=== PATIENT | male | born 1975 | race Caucasian/White ===

== ENCOUNTER 2019-12-18 12:16 | Observation (INO) | payer OTHER, SELFPAY ==
--- NOTE | 2019-12-18 12:30 | CT ---
CT BRAIN NONCONTRAST: DATE: 12/18/2019 HISTORY: 43-year-old male with acute stroke: Left upper extremity hypesthesia (numbness) and dysarthria Dr. Gasca gave verbal report by telephone for this level [address] Montano at 12:2 7 PM 12/18/2019 FINDINGS: There is no evidence of acute intra-axial or extra-axial hemorrhage. There is no midline shift or any other mass effect. There is no extra-axial fluid collection. There is no evidence of obstructive hydrocephalus. Calvarium is intact. IMPRESSION: No acute intracranial findings.
[2019-12-18 12:41] LABS: #Eosinphils 0.1 thou/uL (0.0-0.7); #Lymphocytes 2.5 thou/uL (1.20-3.40); #Monocytes 0.4 thou/uL (0.11-0.59); #Neutrophils 5.4 thou/uL (1.40-6.50); %Basophils 0.5 % (0.0-1.0); %Eosinophils 1.4 % (0.0-10.0); %Lymphocytes 29.4 % (21.0-51.0); %Monocytes 4.7 % (0.0-10.0); Mean Corpuscular HGB CONC 34.7 g/dL (32.0-36.0); Mean Corpuscular Hemoglobin 33.6 pg (27.0-31.0); Mean Corpuscular Volume 96.9 fL (78.0-98.0); Mean Platelet Volume 9.1 fL (7.4-10.4); Platelet Count 212 thou/uL (130-400); RBC Distribution Width 11.3 % (11.5-14.5); Red Blood Cell (RBC) Count 4.76 mill/uL (4.70-6.10); White Blood Cell (WBC) Count 8.5 thou/uL (4.8-10.8)
[2019-12-18 12:48] LABS: PTT 28.6 sec (22.9-36.1)
[2019-12-18 12:49] LABS: Prothrombin Time 13.4 sec (12.0-14.7)
--- NOTE | 2019-12-18 12:58 | CT ---
CT ANGIOGRAM NECK WITH CONTRAST CT ANGIOGRAM BRAIN WITH CONTRAST: DATE: 12/18/2019 HISTORY: 43-year-old male with acute stroke: Left upper extremity hypesthesia and dysarthria. Dr. Gasca gave this level 1 stroke alert protocol report to Dr. Montano at 12:55 PM 12/18/2019 TECHNIQUE: After IV contrast injection, arterial bolus chasing technique scan performed from AP window to vertex of head. Coronal and sagittal 3-D MIP reconstructions. FINDINGS: 0.6 cm nodule abutting posterior edge of right lobe of thyroid gland. 1 cm similar such nodule abutting posterior surface of left lobe of thyroid gland. Inferior sagittal sinus not opacified, probably aplastic Very thin left transverse sinus, probably hypoplastic. The rest of the dural venous sinuses are patent and clear. Aortic arch: No aneurysm or dissection. Brachiocephalic: Origin obscured by streak artifact from adjacent dense IV contrast material in left brachiocephalic vein. Rest of the vessel has normal caliber. Right subclavian artery: Unremarkable Right common carotid artery: Origin obscured by streak artifact from adjacent dense contrast material in right brachiocephalic vein. The rest of the right common carotid artery is normal. Left subclavian artery: Proximal portion unremarkable. The rest of vessel is obscured by streak artif act from contrast material in left subclavian vein. Right vertebral artery, cervical segment: Origin obscured. Diminutive. Terminates in PICA . Left vertebral artery: Proximal portion obscured by streak artifact. Dominant. Mid cervical and intra cranial segments unremarkable. Right internal carotid: Unremarkable Left internal carotid: Unremarkable. Carotid siphons: No significant calcified plaque or high-grade stenosis. Bilateral MCAs: M1 segments are normal. Bilateral ACAs: A1 and A2 segments are unremarkable. Patent anterior communicating artery. Basilar artery: Unremarkable Bilateral crystalizer tender: P1 and P2 segments unremarkable. Patent left posterior communicating artery. Superior cerebellar arteries: Proximal portions visualized. IMPRESSION: 1) no M1 segment thrombus. 2) no definite pathology identified.
[2019-12-18 13:15] LABS: ALT (SGPT) 28 U/L (8-55); AST (SGOT) 16 U/L (5-34); Albumin 4.6 g/dL (3.5-5.0); Alkaline Phosphatase 57 U/L (40-110); Anion Gap 11 mmol/L (10-20); BUN (Urea Nitrogen) 16 mg/dL (8.9-20.6); Bilirubin, Total 1.8 mg/dL (0.2-1.2); CK (CPK) 97 U/L (30-200); Calc. Creatinine Clearance 0 mL/min (70-130); Calcium 9.6 mg/dL (7.8-10.44); Carbon Dioxide 28 mmol/L (22-29); Chloride 104 mmol/L (98-107); Estimated GFR-MDRD 68; Globulin 2.9 g/dL (2.4-3.5); Glucose 103 mg/dL (70-105); Potassium 3.9 mmol/L (3.5-5.1); Protein, Total 7.5 g/dL (6.0-8.3); Sodium 139 mmol/L (136-145)
[2019-12-18 13:37] LABS: Bilirubin Negative (Negative); Blood, Urine Negative (Negative); Clarity Clear (Clear); Glucose, Urine (Dipstick) Normal (Negative); Leukocyte Negative Leu/uL (Negative); Nitrite Negative (Negative); Protein, Urine (Dipstick) Negative (Neg-Trace); Urobilinogen Normal mg/dL (Less than 2)
[2019-12-18] MEDS ORDERED: Iopamidol-370 76% 500 ML 1 ML ONE (15:41)
[2019-12-18] MEDS ORDERED: Acetaminophen 325 MG TAB PO PRN (16:01)
[2019-12-18] MEDS ORDERED: Ondansetron ODT 4 MG TAB SL PRN (16:01)
[2019-12-18] MEDS ORDERED: Ondansetron PF 4 MG/2 ML Vial IVP PRN (16:01)
[2019-12-18 16:38] VITALS: BMI 31.5
--- NOTE | 2019-12-18 16:55 | PDOC.HHP ---
Hospitalist HPI - History of Present Illness left side numbness History of Present Illness: This is a 43 year old male with no past medical history who presented to the ER with numbness on the left side. The patient was eating lunch at [employer] when he felt a sudden shock like sensation to his left arm that started at 11:20 this morning. When he stood up he felt dizzy and states that his whole left side was "tingly." He reported his left side of his face was numb and he wasn't able to speak properly. He waited five minutes at the restaurant to see if it would go away but when it didn't, he drove himself to [employer] to have a friend take him to the hospital. While walking he noticed that his left leg was dragging and his left hand was numb. He had difficulty feeling for the joseph in his pocket. He also reported lightheadedness while standing and a mild headache. The patient states symptoms have significantly improved within the past few hours but he still has numbness on the left face, left hand, but the leg has improved. He dips snuff daily. He denies chest pain, shortness of breath or palpitations. ED Course: The patient had normal vitals upon presentation to the ER. CT head showed no acute findings. CTA showed no significant thrombus. Hospitalist ROS - Review of Systems Constitutional: denies: fever, chills Eyes: denies: pain, vision change Respiratory: denies: cough, dry, shortness of breath Cardiovascular: reports: palpitations, light headedness (when standing). denies : chest pain Gastrointestinal: denies: nausea, vomiting, abdominal pain, diarrhea Musculoskeletal: denies: shoulder pain Neurological: reports: weakness, numbness Hospitalist History - Past Surgical History Other Surgical History: None - Family History Other Family History: Father had a stroke - Social History Smoking Status: Current every day smoker (smokes snuffs for past 15 years) Alcohol: reports: Heavy (Drinks 4 beers daily on a good day) - Exam General Appearance: NAD, awake alert Eye: PERRL, anicteric sclera ENT: normocephalic atraumatic, no oropharyngeal lesions Neck: no JVD Heart: RRR, no murmur, no gallops, no rubs Respiratory: CTAB, no wheezes, no rales, no ronchi Gastrointestinal: soft, non-tender, non-distended, normal bowel sounds Extremities: no cyanosis, no clubbing, no edema Skin: normal turgor, no lesions, no rashes Neurological: cranial nerve grossly intact, normal sensation to touch, no focal deficits, no new deficit Neurological - other findings: Babinski mute. Sub dec sens left side Musculoskeletal - other findings: LUE 4/5, LLE 5/5, RUE 5/5, RLE 5/5. Psychiatric: normal affect, normal behavior, A&O x 3 Hospitalist Results - Labs Result Diagrams: 12/18/19 12:27 12/18/19 12:27 Lab results: WBC 8.5 thou/uL (4.8-10.8) 12/18/19 12:27 Hgb 16.0 g/dL (14.0-18.0) 12/18/19 12:27 Hct 46.1 % (42.0-52.0) 12/18/19 12:27 MCV 96.9 fL (78.0-98.0) 12/18/19 12:27 Plt Count 212 thou/uL (130-400) 12/18/19 12:27 Neutrophils % 64.0 % (42.0-75.0) 12/18/19 12:27 Sodium 139 mmol/L (136-145) 12/18/19 12:27 Potassium 3.9 mmol/L (3.5-5.1) 12/18/19 12:27 Chloride 104 mmol/L (98-107) 12/18/19 12:27 Carbon Dioxide 28 mmol/L (22-29) 12/18/19 12:27 BUN 16 mg/dL (8.9-20.6) 12/18/19 12:27 Creatinine 1.16 mg/dL (0.7-1.3) 12/18/19 12:27 Glucose 103 mg/dL (70-105) 12/18/19 12:27 Calcium 9.6 mg/dL (7.8-10.44) 12/18/19 12:27 Total Bilirubin 1.8 mg/dL (0.2-1.2) H 12/18/19 12:27 AST 16 U/L (5-34) 12/18/19 12:27 ALT 28 U/L (8-55) 12/18/19 12:27 Alkaline Phosphatase 57 U/L (40-110) 12/18/19 12:27 Creatine Kinase 97 U/L (30-200) 12/18/19 12:27 Troponin I 0.011 ng/mL (< 0.028) 12/18/19 12:27 Serum Total Protein 7.5 g/dL (6.0-8.3) 12/18/19 12:27 Albumin 4.6 g/dL (3.5-5.0) 12/18/19 12:27 Urine Ketones Negative mg/dL (Negative) 12/18/19 13:15 Urine Blood Negative (Negative) 12/18/19 13:15 Urine Nitrite Negative (Negative) 12/18/19 13:15 Ur Leukocyte Esterase Negative Zoran/uL (Negative) 12/18/19 13:15 Hospitalist H&P A/P - Plan Plan: This is a 43 year old male who presented to the ER with left sided numbness, concerning for stroke LEft side numbness - TIA versus stroke - CT head and CTA negative, will give aspirin 325 mg now, then 81 mg daily - check MRI brain - start atorvastatin - trend troponin - monitor on telemetry - PT/OT/speech Dizziness - check orthostatics - check chest X ray - trend troponin DVT prophylaxis: lovenox Code status:full code
[2019-12-18] MEDS ORDERED: Aspirin 325 mg Enteric Coated Tablet PO SCH (17:00)
[2019-12-18] MEDS ORDERED: Enoxaparin Sodium 40 MG/0.4 ML SYRINGE SC SCH (17:00)
--- NOTE | 2019-12-18 18:17 | RAD ---
PORTABLE CHEST ONE VIEW: 12/18/19 at 4:50 p.m. HISTORY: Left arm numbness, lightheadedness. FINDINGS: The heart size is normal. The lungs are expanded without focal areas of consolidation, pneumothoraces or pleural effusions. IMPRESSION: No radiographic evidence of acute cardiopulmonary process. POS: OFF
[2019-12-18] MEDS ORDERED: Atorvastatin Calcium 40 MG TAB PO SCH (21:00)
[2019-12-19 05:23] LABS: Hemoglobin A1c 5.1 % (4.0-6.0)
[2019-12-19 05:34] LABS: ALT (SGPT) 23 U/L (8-55); AST (SGOT) 15 U/L (5-34); Alkaline Phosphatase 59 U/L (40-110); Bilirubin, Direct 0.3 mg/dL (0.1-0.3); Bilirubin, Total 0.9 mg/dL (0.2-1.2); Cardiac Risk 5.3 (Less than 4.5); Protein, Total 6.6 g/dL (6.0-8.3)
--- NOTE | 2019-12-19 08:16 | MRI ---
MRI BRAIN NONCONTRAST: DATE: 12/19/2019 HISTORY: 43-year-old male with acute stroke: Dysarthria and Left upper extremity hypesthesia (numbness) COMPARISON: None FINDINGS: There is a thin, subtle linear array (along oblique transverse orientation) of tiny foci of mildly re stricted diffusion in the right posterior centrum semiovale, involvement of at least one very small region of right posterior suprasylvian lateral frontal cortical ortez matter. There is very subtle, mi nimal associated hyperintensity on T2 WI and FLAIR, which would be difficult to recognize without the DWI and ADC map. No associated hemorrhage. No evidence of recent or remote intra-axial hemorrhage . Ventricles are normal in size and configuration. No significant chronic ischemic white matter changes. Flow voids are grossly maintained in the major arteries of elem of [place]. IMPRESSION: A very subtle, thin, linear array of a few acute tiny infarctions in right middle cerebral artery bra nch territory.
[2019-12-19] MEDS ORDERED: Enoxaparin Sodium 40 MG/0.4 ML SYRINGE SC SCH (09:00)
[2019-12-19] MEDS ORDERED: Aspirin 325 mg Enteric Coated Tablet PO SCH (09:00)
[2019-12-19] MEDS ORDERED: Aspirin 81 mg Enteric Coated Tablet PO SCH (09:00)
--- NOTE | 2019-12-19 12:14 | CON ---
NEUROLOGY CONSULTATION DATE OF CONSULTATION: 12/19/2019 REASON FOR CONSULTATION: Left paresthesias on the left side of the body. HISTORY OF PRESENT ILLNESS: Mr. Holley is a 43-year-old male with no significant past medical history, presented to the emergency room with tingling and numbness on the left side of the body. According to the patient, he was eating lunch at restaurant and he felt a sudden shock-like sensation in his left arm that started around 1120 hours on 12/18/2019 and then his left side of the face went numb and he was unable to speak properly. He waited for about 5 to 6 minutes at the restaurant to see if the symptoms resolved, but symptoms did not resolve. He drove himself to the [employer] to have a friend take him to the hospital. At that time, he also noted that he was dragging his left leg and his left hand was also numb. The patient also reported a mild headache and lightheadedness, and he denies any nausea, vomiting , vertigo, chest pain, abdominal pain, loss of vision, or loss of consciousness associated with the episode. In the emergency room, head CT was done, which did not reveal any acute intracranial pathology. CT angiogram of the head and neck did not reveal any significant thrombosis or hemodynamically significant stenosis. PAST MEDICAL HISTORY: None. PAST SURGICAL HISTORY: None. FAMILY HISTORY: Father had stroke. SOCIAL HISTORY: He is a current smoker. He drinks alcohol 4 beers a day. - Review of Systems Constitutional: denies: fever, chills Eyes: denies: pain, vision change Respiratory: denies: cough, dry, shortness of breath Cardiovascular: reports: palpitations, light headedness (when standing). denies : chest pain Gastrointestinal: denies: nausea, vomiting, abdominal pain, diarrhea Musculoskeletal: denies: shoulder pain Neurological: reports: weakness, numbness - Exam General Appearance: NAD, awake alert Eye: PERRL, anicteric sclera ENT: normocephalic atraumatic, no oropharyngeal lesions Neck: no JVD Heart: RRR, no murmur, no gallops, no rubs Respiratory: CTAB, no wheezes, no rales, no ronchi Gastrointestinal: soft, non-tender, non-distended, normal bowel sounds Extremities: no cyanosis, no clubbing, no edema Skin: normal turgor, no lesions, no rashes Neurological: Mental status; the patient is alert and oriented to person, place , and time. Recent and remote memory intact. Fund of knowledge appropriate. Speech is clear. Cranial nerves 2 through 12 intact. Motor; muscle tone and bulk are normal. Strength 4/5 in the left upper extremity, left lower extremity 5/5, and right upper extremity and right lower extremity 5/5. Sensory, decreased sensation to pinprick and light touch in the left upper extremity. Reflexes symmetric bilaterally. Cerebellar intact. Gait deferred due to the patient's safety reasons. 12/18/19 12:27 Lab results: WBC 8.5 thou/uL (4.8-10.8) 12/18/19 12:27 Hgb 16.0 g/dL (14.0-18.0) 12/18/19 12:27 Hct 46.1 % (42.0-52.0) 12/18/19 12:27 MCV 96.9 fL (78.0-98.0) 12/18/19 12:27 Plt Count 212 thou/uL (130-400) 12/18/19 12:27 Neutrophils % 64.0 % (42.0-75.0) 12/18/19 12:27 Sodium 139 mmol/L (136-145) 12/18/19 12:27 Potassium 3.9 mmol/L (3.5-5.1) 12/18/19 12:27 Chloride 104 mmol/L (98-107) 12/18/19 12:27 Carbon Dioxide 28 mmol/L (22-29) 12/18/19 12:27 BUN 16 mg/dL (8.9-20.6) 12/18/19 12:27 Creatinine 1.16 mg/dL (0.7-1.3) 12/18/19 12:27 Glucose 103 mg/dL (70-105) 12/18/19 12:27 Calcium 9.6 mg/dL (7.8-10.44) 12/18/19 12:27 Total Bilirubin 1.8 mg/dL (0.2-1.2) H 12/18/19 12:27 AST 16 U/L (5-34) 12/18/19 12:27 ALT 28 U/L (8-55) 12/18/19 12:27 Alkaline Phosphatase 57 U/L (40-110) 12/18/19 12:27 Creatine Kinase 97 U/L (30-200) 12/18/19 12:27 Troponin I 0.011 ng/mL (< 0.028) 12/18/19 12:27 Serum Total Protein 7.5 g/dL (6.0-8.3) 12/18/19 12:27 Albumin 4.6 g/dL (3.5-5.0) 12/18/19 12:27 Urine Ketones Negative mg/dL (Negative) 12/18/19 13:15 Urine Blood Negative (Negative) 12/18/19 13:15 Urine Nitrite Negative (Negative) 12/18/19 13:15 Ur Leukocyte Esterase Negative Zoran/uL (Negative) 12/18/19 13:15 DATA REVIEWED: I reviewed the labs, which were essentially unremarkable. ASSESSMENT AND PLAN: Mr. Holley is a 43-year-old male, who presented to the emergency room with left-sided numbness. MRI of the brain reviewed, which showed tiny acute infarctions in the right middle cerebral artery territory. Recommend echocardiogram to rule out cardioembolic source. CT angiogram of the head and neck reviewed, which was negative for hemodynamically significant stenosis. Continue aspirin and atorvastatin for secondary stroke prevention. Continue home medications. Neuro checks every 4 hours, telemetry, check lipid panel, hemoglobin A1c, and TSH. PT/OT/speech. DVT prophylaxis. We will continue to follow. Thank you for the consult. Job ID: [id number] MTDD
[2019-12-19 15:18] VITALS: BP 122/59; TEMP 97.9
--- NOTE | 2019-12-20 00:36 | CON ---
DATE OF CONSULTATION: 12/19/2019 REASON FOR CONSULTATION: Aortic insufficiency, recent transient ischemic attack. HISTORY OF PRESENT ILLNESS: Mr. Holley is a 43-year-old gentleman who came to the hospital yesterday after having experiencing left arm tingling and then weakness. He initially noted that his left leg was also dragging and his left hand was numb, later the symptoms resolved. He had an extensive evaluation here including CT of the head, which showed no acute findings. CT angiogram showed no significant obstruction in the carotid arteries or the intracerebral arteries. MRI revealed that he had "very subtle" abnormality of tiny infarctions in the right middle cerebral artery branch territory. As a part of his evaluation, he underwent an echocardiogram, this will be outlined below. The patient has no chest pain. He has an occasional palpitation and a feeling of his heart racing, but he does not really remember how often that happened. He said has not paid a lot of attention to it. He has no anginal symptoms. He has some intermittent fatigue, but no exertional chest pain or pressure. No anginal symptoms. MEDICATIONS: Prior to admission, he was taking none. SOCIAL HISTORY: He uses tobacco daily. Alcohol, drinks four beers "on a good day." FAMILY HISTORY: Father had a stroke. PHYSICAL EXAMINATION: GENERAL: This is a young man, alert and oriented, in no distress. VITAL SIGNS: Blood pressure earlier 110/60, then 122/60; pulse 72, regular. HEENT: Eyes; sclerae nonicteric. Mouth, mucous membranes moist. NECK: Supple. No lymphadenopathy. LUNGS: Clear. CARDIAC: There is a 2/6 decrescendo murmur heard along the left mid sternal border. There is 1 to 2/6 systolic murmur in the right upper sternal border. ABDOMEN: Soft, nontender. EXTREMITIES: Warm and dry. No clubbing or cyanosis. There is no edema. Good peripheral pulses. PERTINENT LABORATORY DATA: Cholesterol is 243, LDL 163. Echocardiogram reveals he has mildly dilated left ventricle, moderate to severe aortic insufficiency. The aortic valve leaflets are mildly calcified. EKG is normal sinus rhythm. Troponin levels were negative. TSH 3.0534. ASSESSMENT: 1. Transient ischemic attack as outlined above. 2. Mildly dilated left ventricle. 3. Moderate to severe aortic insufficiency, likely chronic. PLAN: 1. At this time, it is unclear what caused the transient ischemic attack. Certainly, could have had some embolic debris from the aortic valve, which has calcium. There is no evidence of any intracranial vascular disease or carotid disease. He also has occasional palpitation; therefore, it would be reasonable to try to at least screen him for atrial fibrillation, although none has been diagnosed so far. For now, he will go home on;. a. Aspirin. b. Atorvastatin 40 mg a day. 2. We will ask him to come back to the office to have a 7-day monitor to screen for any atrial arrhythmias. 3. In view of the mildly dilated left ventricle, we would like to do stress testing at some point, Cardiolite treadmill testing. 4. Tobacco and alcohol cessation would be ideal. We will advise this to this gentleman. Job ID: [id number]
--- NOTE | 2019-12-20 01:39 | DIS ---
DATE OF ADMISSION: 12/18/2019 DATE OF DISCHARGE: 12/19/2019 DISCHARGE DIAGNOSES: 1. Right MCA stroke. 2. Hypercholesterolemia. 3. Aortic regurgitation. 4. Three leaflet aortic valve. CONSULTATIONS: 1. Cardiology with Dr. Atul Johns 2. Neurology with Dr. Trudy Johnson. BRIEF HISTORY OF PRESENT ILLNESS: This is a 43-year-old male, who presented to the emergency room after experiencing a left-sided arm and face numbness after eating in a restaurant and standing up to pay his bill. His left leg was also weak as well. His symptoms mostly resolved by the time he came in the emergency room. The patient had a CT scan of his head, which showed no acute findings. CTA showed no thrombus. The patient was admitted for further workup. HOSPITAL COURSE: Acute right MCA stroke: The patient underwent an MRI of his brain, which showed subtle thin array of few acute tiny infarctions in the right MCA territory. He was given aspirin 325 mg and then was switched to aspirin 81 mg. He was also started on atorvastatin. His troponins were trended, which were normal. EKG showed no abnormalities. He had no arrhythmias on telemetry. ECHO showed [id number] aortic regurg in three leaflet aortic valve. He was seen by Cardiology, who cleared him for discharge and recommended followup as an outpatient. The patient reported resolution of numbness in his face, leg and arm but has residual numbness in his left hand. The patient to follow up with his PCP in a week. Dizziness: The patient had orthostatics checked, which were negative. Chest x- ray was done, which was unremarkable. He was seen by Physical Therapy and Occupational Therapy and cleared for discharge. DISCHARGE PHYSICAL EXAMINATION: VITAL SIGNS: Temperature 98, heart rate 69, respiratory rate 20, O2 saturation 97% on room air, and blood pressure 113/61. GENERAL: The patient is alert, awake, and oriented x3. CVS: Regular rate and rhythm with no murmurs, rubs, or gallops. LUNGS: Clear to auscultation bilaterally. ABDOMEN: Positive bowel sounds. Soft, nontender, and nondistended. EXTREMITIES: No edema. NEUROLOGIC: The patient's cranial nerves 2 through 12 are intact. The patient still has subjective numbness on his left hand. Otherwise, he has intact sensation in all 4 extremities. 5/5 strength in all 4 extremities. PERTINENT LABORATORY DATA: CBC 12/17: Normal. BMP 12/17: Normal. Troponin I: Negative x3. Total bilirubin 12/17: Slightly elevated at 1.8, however, repeat LFTs 12/18 showed normal bilirubin. Lipid panel: Triglyceride 170, cholesterol 243, LDL 163, HDL of 46, TSH 3.05. UA: Negative. CT scan of the brain 12/17: No acute findings. CT angio 12/17: Shows no M1 segment thrombus. Chest x-ray: Shows no acute disease. PERTINENT IMAGING: CTA head and neck shows no M1 segment thrombus: No definite pathology. Brain MRI 12/18: Shows subtle hyperintensity on T2WI and FLAIR. There is mildly restricted diffusion in the right posterior centrum semiovale and at least one very small region of right posterior suprasylvian lateral frontal cortical ortez matter. There is a tiny infarction in the right MCA artery territory. Echo 12/18: Shows moderate to severe AR. EF 50% to 55%. Aortic valve leaflets mildly calcified with three leaflets. DISCHARGE CONDITION: Stable. ACTIVITY: As tolerated. DIET: Heart healthy diet. DISCHARGE MEDICATIONS: 1. Aspirin 81 mg p.o. daily. 2. Atorvastatin 40 mg p.o. at bedtime. DISCHARGE INSTRUCTIONS: The patient is to follow up with his PCP in a week. He is to follow up with Dr. Atul Johns in 1 to 2 weeks from Cardiology. Job ID: [id number] MTDD
--- NOTE | 2019-12-20 14:50 | CT ---
CT ANGIOGRAM NECK WITH CONTRAST CT ANGIOGRAM BRAIN WITH CONTRAST: DATE: 12/18/2019 HISTORY: 43-year-old male with acute stroke: Left upper extremity hypesthesia and dysarthria. Dr. Gasca gave this level 1 stroke alert protocol report to Dr. Montano at 12:55 PM 12/18/2019 TECHNIQUE: After IV contrast injection, arterial bolus chasing technique scan performed from AP window to vertex of head. Coronal and sagittal 3-D MIP reconstructions. FINDINGS: 0.6 cm nodule abutting posterior edge of right lobe of thyroid gland. 1 cm similar such nodule abutting posterior surface of left lobe of thyroid gland. Inferior sagittal sinus not opacified, probably aplastic Very thin left transverse sinus, probably hypoplastic. The rest of the dural venous sinuses are patent and clear. Aortic arch: No aneurysm or dissection. Brachiocephalic: Origin obscured by streak artifact from adjacent dense IV contrast material in left brachiocephalic vein. Rest of the vessel has normal caliber. Right subclavian artery: Unremarkable Right common carotid artery: Origin obscured by streak artifact from adjacent dense contrast material in right brachiocephalic vein. The rest of the right common carotid artery is normal. Left subclavian artery: Proximal portion unremarkable. The rest of vessel is obscured by streak artif act from contrast material in left subclavian vein. Right vertebral artery, cervical segment: Origin obscured. Diminutive. Terminates in PICA . Left vertebral artery: Proximal portion obscured by streak artifact. Dominant. Mid cervical and intra cranial segments unremarkable. Right internal carotid: Unremarkable Left internal carotid: Unremarkable. Carotid siphons: No significant calcified plaque or high-grade stenosis. Bilateral MCAs: M1 segments are normal. Bilateral ACAs: A1 and A2 segments are unremarkable. Patent anterior communicating artery. Basilar artery: Unremarkable Bilateral route driver coin machines: P1 and P2 segments unremarkable. Patent left posterior communicating artery. Superior cerebellar arteries: Proximal portions visualized. IMPRESSION: 1) no M1 segment thrombus. 2) no definite pathology identified. Transcribed Date/Time: 12/20/2019 2:50 PM
--- NOTE | 2019-12-30 12:59 | EKG ---
Test Reason : Blood Pressure : / mmHG Vent. Rate : 087 BPM Atrial Rate : 087 BPM P-R Int : 156 ms QRS Dur : 102 ms QT Int : 360 ms P-R-T Axes : 033 031 055 degrees QTc Int : 433 ms Normal sinus rhythm Possible Left atrial enlargement Septal infarct , age undetermined Abnormal ECG Confirmed by LORA CATES DO ([id number]), newspaper editor CARMENCITA CAMACHO ([id number]) on 12/30/2019 12:59:27 PM Referred By: Confirmed By:LORA CATES DO
== END 2019-12-19 18:20 | disposition home or self-care (01) ==
LOC: ERS 12:16 → 2SE 16:17
PROVIDERS: ADMIT Internal Medicine; ATTEND Internal Medicine
DX: I63.311 Cerebral infarction due to thrombosis of right middle cerebral artery (principal); R47.1 Dysarthria and anarthria; G83.14 Monoplegia of lower limb affecting left nondominant side; R42 Dizziness and giddiness; F17.290 Nicotine dependence, other tobacco product, uncomplicated; E04.1 Nontoxic single thyroid nodule; I35.1 Nonrheumatic aortic (valve) insufficiency; I51.7 Cardiomegaly; E78.00 Pure hypercholesterolemia, unspecified
CPT/HCPCS: 36415; 36416; 70450; 70496; 70498; 70551; 71045; 80053; 80061; 80076; 81003; 82550; 83036; 84443; 84484; 85025; 85610; 85730; 93005; 93306; 96372; G0378; J1650; Q9967